=== PATIENT | female | born 1940 | race Caucasian/White ===

== ENCOUNTER 2016-09-26 08:16 | Day surgery (SDC) | payer OTHER ==
[~2016-09-26] VITALS: Ht 152.4 cm; Wt 73.9 kg
[~2016-09-26 08:16] MED LIST: ADVAIR 250/501 DISK IH; ALPRAZOLAM0.5 MG OP; ANTIVERT25 MG PO; ASCORBIC ACID500 M3 PO; BESIVANCE5 ML LEFT EYE; CORTISONE57 GM TP; DICLOFENAC POTA50 MG PO; DILAUDID2 MG PO; ESCITALOPRAM OX10 MG PO; ESOMEPRAZOLE MA40 MG PO; FISH OIL 1,0001 EAC7 PO; FUROSEMIDE20 MG PO; GLIPIZIDE5 M1 PO; HYDROCODON-ACE1 EAC5 PO; IMDUR60 MG PO; ISORDIL,SORBITRA5 MG PO; ISOSORBIDE MONO60 MG PO; KEFLEX500 MG PO; KLOR-CON M2020 MEQ PO; LASIX20 MG PO; LASIX40 MG PO; LEVOFLOXACIN750 MG PO; LEXAPRO10 MG PO; LISINOPRIL5 MG PO; LOPRESSOR100 M1 PO; LOPRESSOR50 MG PO; LOVASTATIN20 MG PO; Lopressor PO; MECLIZINE HCL12.5 M1 PO; MELATONIN10 M1 PO; METFORMIN HCL500 M1 PO; METFORMIN HCL500 MG PO; METOPROLOL TAR100 MG PO; NITROGLYCERIN0.4 MG SL; NITROSTAT0.4 MG SL; OMEPRAZOLE20 M2 PO; OMEPRAZOLE20 MG PO; PLAVIX75 MG PO; PRAVASTATIN SOD20 MG PO; PRAVASTATIN SOD80 MG PO; PRED FORTE100 DROP/5 LEFT EYE; PROLENSA1.6 ML LEFT EYE; TYLENOL ARTHRI650 MG PO; TYLENOL EXTRA500 MG PO; ULTRAM50 MG PO; VENTOLIN HFA18 GM IH; VITAMIN C1000 MG PO; VITAMIN D31000 UNIT PO; VITAMIN D3400 UNI1 PO; VITAMIN E100 UNIT PO; ZOFRAN4 MG PO
[2016-09-26 09:16] LABS: POINT-OF-CARE METER ID UU13113696; POINT-OF-CARE USER ID AHSHCPRMS
[2016-09-26 16:15] LABS: POINT-OF-CARE METER ID UU13113819
== END 2016-09-26 16:25 | disposition short-term general hospital (02) ==
LOC: CATH 08:16
PROVIDERS: Internal Medicine Interventional Cardiology
DX: I25.110 Atherosclerotic heart disease of native coronary artery with unstable angina pectoris (principal); R06.02 Shortness of breath; I34.0 Nonrheumatic mitral (valve) insufficiency; I10 Essential (primary) hypertension; I25.2 Old myocardial infarction; I50.9 Heart failure, unspecified; E78.5 Hyperlipidemia, unspecified; E11.9 Type 2 diabetes mellitus without complications
CPT/HCPCS: 82948; C1769; C1887; J1200; J1644; J2250; J2765; J2930; J3010; J7050

== ENCOUNTER 2016-10-14 12:10 | Emergency (ER) | payer OTHER ==
[~2016-10-14] VITALS: Ht 154.9 cm; Wt 78.0 kg
[2016-10-14 12:41] LABS: HEMATOCRIT 30.3 % (36.0-46.0); MCH 28.8 PG (29.0-34.0); MCHC 32.3 G/DL (30.0-36.0); MCV 89.1 FL (83-99); MEAN PLAT.VOLUME 9.1 uM^3 (9.5-12.4); PLATELET COUNT 309 K/uL (156-360); RBC DIS.WIDTH-SD 43.9 % (39-53)
[2016-10-14 12:49] LABS: WHITE BLOOD COUNT 13.4 K/uL (4.1-10.2)
[2016-10-14 12:53] LABS: INTER. NORMALIZED RATIO 1.5
[2016-10-14 12:55] LABS: CHLORIDE 92 mEq/L (99-109); POTASSIUM 4.7 mEq/L (3.7-5.4); SODIUM 128 mEq/L (136-147)
[2016-10-14 12:57] LABS: GLUCOSE 188 mg/dL (70-99)
[2016-10-14 12:58] LABS: ANION GAP 13 MEQ/L (2-14); PROTHROMBIN TIME 15.1 (9.2-11.2)
[2016-10-14 13:00] LABS: GFR ESTIMATE (CALCULATED) 57 mL/min/
[2016-10-14 13:01] LABS: UREA NITROGEN (BUN) 20 mg/dL (9-23)
[2016-10-14 13:12] LABS: TROP-I INTERPRETATION NEGATIVE; TROPONIN-I 0.12 ng/mL (0.0-0.30)
[2016-10-14 14:30] LABS: ADD MIUA? NO; BILIRUBIN NEGATIVE; BLOOD NEGATIVE; GLUCOSE (STRIP) NEGATIVE; KETONES NEGATIVE; LEUKOCYTES NEGATIVE; NITRITE NEGATIVE; PH, URINE 6.5 (5-8); PROTEIN (STRIP) NEGATIVE; SPECIFIC GRAVITY 1.012 (1.000-1.030); UCUL ADDED? NO; UROBILINOGEN 0.2 MG/DL (0.2-1.0)
[2016-10-14 14:31] LABS: COLOR LT YELLOW ((YELLOW))
[2016-10-14 18:31] VITALS: BP 143/76
== END 2016-10-14 18:30 | disposition short-term general hospital (02) ==
LOC: EME 12:10
PROVIDERS: Emergency Medicine
DX: I50.9 Heart failure, unspecified (principal); I48.91 Unspecified atrial fibrillation; Z95.5 Presence of coronary angioplasty implant and graft; E11.9 Type 2 diabetes mellitus without complications; Z79.01 Long term (current) use of anticoagulants; Z79.4 Long term (current) use of insulin; Z95.0 Presence of cardiac pacemaker; Z99.81 Dependence on supplemental oxygen; Z88.6 Allergy status to analgesic agent; Z91.041 Radiographic dye allergy status; Z88.3 Allergy status to other anti-infective agents
CPT/HCPCS: 71010; 80048; 81003; 83880; 84484; 85027; 85610; 93005; 94002; 99281; 99285

== ENCOUNTER 2016-11-03 08:46 | Emergency (ER) | payer OTHER ==
[~2016-11-03] VITALS: Ht 152.4 cm; Wt 67.9 kg
[2016-11-03 09:37] LABS: BASOPHIL COUNT 0.1 K/uL (0-0.1); EOSINOPHIL (%) 1.6 % (0-5); EOSINOPHIL COUNT 0.2 K/uL (0-0.3); HEMATOCRIT 36.7 % (36.0-46.0); IMMATURE GRANULOCYTE (%) 0.2 % (0.0-0.7); IMMATURE GRANULOCYTE COUNT 0.2 K/uL; LYMPHOCYTE COUNT 1.4 K/uL (1.0-2.8); MEAN PLAT.VOLUME 9.1 uM^3 (9.5-12.4); MONOCYTE (%) 6.3 % (3-12); MONOCYTE COUNT 0.6 K/uL (0-0.8); NEUTROPHIL (%) 75.6 % (45-76); NEUTROPHIL COUNT 6.9 K/uL (1.8-6.4); PLATELET COUNT 390 K/uL (156-360); RBC DIS.WIDTH-CV 13.6 % (11.8-14.6); RBC DIS.WIDTH-SD 41.6 % (39-53); RED BLOOD COUNT 4.32 M/uL (3.80-5.20); WHITE BLOOD COUNT 9.1 K/uL (4.1-10.2)
[2016-11-03 09:56] LABS: INTER. NORMALIZED RATIO 4.6; PROTHROMBIN TIME 49.4 (9.2-11.2)
[2016-11-03 13:47] VITALS: BP 119/81
== END 2016-11-03 13:54 | disposition home or self-care (01) ==
LOC: EME 08:46
PROVIDERS: Physician Assistant
PROC: 2Y41X5Z Packing of Nasal Region using Packing Material (ICD-10-PCS; principal; 2016-11-03)
DX: R04.0 Epistaxis (principal); Z79.01 Long term (current) use of anticoagulants; Z95.1 Presence of aortocoronary bypass graft; Z95.2 Presence of prosthetic heart valve
CPT/HCPCS: 85025; 85610; 99281; 99284

== ENCOUNTER 2016-11-03 17:45 | Emergency (ER) | payer OTHER ==
[~2016-11-03] VITALS: Ht 152.4 cm; Wt 68.0 kg
[2016-11-03 19:54] LABS: HEMATOCRIT 36.5 % (36.0-46.0); MCH 28.2 PG (29.0-34.0); MCHC 33.4 G/DL (30.0-36.0); MCV 84.5 FL (83-99); MEAN PLAT.VOLUME 8.9 uM^3 (9.5-12.4); PLATELET COUNT 396 K/uL (156-360); RBC DIS.WIDTH-CV 13.8 % (11.8-14.6); RBC DIS.WIDTH-SD 41.9 % (39-53); RED BLOOD COUNT 4.32 M/uL (3.80-5.20); WHITE BLOOD COUNT 11.6 K/uL (4.1-10.2)
[2016-11-03 20:03] LABS: CHLORIDE 101 mEq/L (99-109); POTASSIUM 3.6 mEq/L (3.7-5.4); SODIUM 136 mEq/L (136-147)
[2016-11-03 20:05] LABS: GLUCOSE 103 mg/dL (70-99)
[2016-11-03 20:06] LABS: ANION GAP 11 MEQ/L (2-14)
[2016-11-03 20:08] LABS: GFR ESTIMATE (CALCULATED) 51 mL/min/
[2016-11-03 20:09] LABS: UREA NITROGEN (BUN) 22 mg/dL (9-23)
[2016-11-03 21:26] VITALS: BP 133/94
== END 2016-11-03 21:32 | disposition home or self-care (01) ==
LOC: EME 17:45
PROVIDERS: Emergency Medicine
PROC: 2Y41X5Z Packing of Nasal Region using Packing Material (ICD-10-PCS; principal; 2016-11-03)
DX: R04.0 Epistaxis (principal); Z79.01 Long term (current) use of anticoagulants; I50.9 Heart failure, unspecified; E11.9 Type 2 diabetes mellitus without complications; E78.5 Hyperlipidemia, unspecified; K21.9 Gastro-esophageal reflux disease without esophagitis; Z98.61 Coronary angioplasty status; Z95.1 Presence of aortocoronary bypass graft; Z95.0 Presence of cardiac pacemaker; Z79.84 Long term (current) use of oral hypoglycemic drugs
CPT/HCPCS: 80048; 85027; 87493; 99281; 99283

== ENCOUNTER 2017-06-08 14:51 | Emergency (ER) | payer OTHER ==
[~2017-06-08] VITALS: Ht 152.4 cm; Wt 62.2 kg
[2017-06-08 15:28] LABS: HEMATOCRIT 39.8 % (36.0-46.0); MCH 26.3 PG (29.0-34.0); MCHC 31.9 G/DL (30.0-36.0); MCV 82.6 FL (83-99); MEAN PLAT.VOLUME 9.4 uM^3 (9.5-12.4); PLATELET COUNT 267 K/uL (156-360); RBC DIS.WIDTH-CV 15.5 % (11.8-14.6); RBC DIS.WIDTH-SD 46.5 % (39-53); RED BLOOD COUNT 4.82 M/uL (3.80-5.20); WHITE BLOOD COUNT 8.1 K/uL (4.1-10.2)
[2017-06-08 15:40] LABS: CHLORIDE 106 mEq/L (99-109); POTASSIUM 4.1 mEq/L (3.7-5.4); SODIUM 142 mEq/L (136-147)
[2017-06-08 15:42] LABS: GLUCOSE 111 mg/dL (70-99)
[2017-06-08 15:43] LABS: ANION GAP 7 MEQ/L (2-14)
[2017-06-08 15:45] LABS: GFR ESTIMATE (CALCULATED) 39 mL/min/
[2017-06-08 15:46] LABS: UREA NITROGEN (BUN) 23 mg/dL (9-23)
[2017-06-08 16:05] LABS: ADD MIUA? YES; BILIRUBIN NEGATIVE; BLOOD NEGATIVE; COLOR YELLOW ((YELLOW)); GLUCOSE (STRIP) NEGATIVE; KETONES NEGATIVE; LEUKOCYTES LARGE; NITRITE POSITIVE; PROTEIN (STRIP) NEGATIVE; SPECIFIC GRAVITY 1.016 (1.000-1.030); UROBILINOGEN 0.2 MG/DL (0.2-1.0)
[2017-06-08 16:31] LABS: BACTERIA RARE /HPF; EPITHELIAL CELLS RARE /HPF; HYALINE CASTS 0-5 /LPF; MUCUS TRACE /LPF; RED BLOOD CELLS 0-5 /HPF (0-5); UCUL ADDED? YES; WHITE BLOOD CELLS 30-40 /HPF (0-5)
[2017-06-08] MEDS ORDERED: ZOFRAN ODT4 MG PO (18:15)
[2017-06-08] MEDS ORDERED: ULTRAM50 MG PO (18:15)
[2017-06-08] MEDS ORDERED: KEFLEX500 MG PO (18:15)
[2017-06-08] MEDS ORDERED: PYRIDIUM200 MG PO (18:15)
[2017-06-08 18:42] VITALS: BP 135/67
== END 2017-06-08 18:43 | disposition home or self-care (01) ==
LOC: EME 14:51
DX: N39.0 Urinary tract infection, site not specified (principal); I50.9 Heart failure, unspecified; E11.9 Type 2 diabetes mellitus without complications; K21.9 Gastro-esophageal reflux disease without esophagitis; E78.5 Hyperlipidemia, unspecified; Z87.442 Personal history of urinary calculi; Z95.1 Presence of aortocoronary bypass graft; Z79.84 Long term (current) use of oral hypoglycemic drugs
CPT/HCPCS: 74176; 80048; 81003; 85027; 87077; 87086; 87186; 99281; 99284; J1885; J3010

== ENCOUNTER 2017-09-15 14:30 | Emergency (ER) | payer OTHER ==
[~2017-09-15] VITALS: Ht 175.3 cm; Wt 65.3 kg
[~2017-09-15 14:30] MED LIST changes: +PYRIDIUM200 MG PO; +ZOFRAN ODT4 MG PO
[2017-09-15 15:22] LABS: HEMATOCRIT 43.1 % (36.0-46.0); HEMOGLOBIN 14.3 G/DL (11.9-15.5); MCH 28.8 PG (29.0-34.0); MCHC 33.2 G/DL (30.0-36.0); MCV 86.7 FL (83-99); PLATELET COUNT 243 K/uL (156-360); RBC DIS.WIDTH-CV 15.5 % (11.8-14.6); RBC DIS.WIDTH-SD 49.3 % (39-53); RED BLOOD COUNT 4.97 M/uL (3.80-5.20); WHITE BLOOD COUNT 7.5 K/uL (4.1-10.2)
[2017-09-15 15:36] LABS: CHLORIDE 98 mEq/L (99-109); POTASSIUM 3.7 mEq/L (3.7-5.4)
[2017-09-15 15:37] LABS: GLUCOSE 129 mg/dL (70-99)
[2017-09-15 15:39] LABS: SODIUM 133 mEq/L (136-147)
[2017-09-15 15:41] LABS: CREATININE 0.9 mg/dL (0.6-1.3); GFR ESTIMATE (CALCULATED) > 59 mL/min/
[2017-09-15 15:42] LABS: UREA NITROGEN (BUN) 17 mg/dL (9-23)
[2017-09-15 15:47] LABS: TROP-I INTERPRETATION NEGATIVE; TROPONIN-I < 0.01 ng/mL (0.0-0.30)
[2017-09-15 18:34] LABS: TROP-I INTERPRETATION NEGATIVE; TROPONIN-I < 0.01 ng/mL (0.0-0.30)
[2017-09-15] MEDS ORDERED: CEFDINIR300 MG PO (18:43)
[2017-09-15 19:10] VITALS: BP 116/43
== END 2017-09-15 19:19 | disposition home or self-care (01) ==
LOC: EME 14:30
PROVIDERS: Physician Assistant Medical
DX: J18.9 Pneumonia, unspecified organism (principal); E78.5 Hyperlipidemia, unspecified; I50.9 Heart failure, unspecified; E11.9 Type 2 diabetes mellitus without complications; K21.9 Gastro-esophageal reflux disease without esophagitis; F41.9 Anxiety disorder, unspecified; Z95.1 Presence of aortocoronary bypass graft; Z98.61 Coronary angioplasty status; Z95.0 Presence of cardiac pacemaker; Z90.49 Acquired absence of other specified parts of digestive tract; Z79.84 Long term (current) use of oral hypoglycemic drugs; Z88.5 Allergy status to narcotic agent; Z88.6 Allergy status to analgesic agent; Z91.041 Radiographic dye allergy status
CPT/HCPCS: 80048; 84484; 85027; 93005; 94640; 99281; 99285